=== PATIENT | female | born 1995 | race African-American/Black ===

== ENCOUNTER 2019-04-30 09:09 | Emergency (ER) | payer OTHER ==
[2019-04-30 09:15] VITALS: BP 124/80
[2019-04-30] MEDS ORDERED: ACETAMINOPHEN SOLN 325 MG/10.15 ML UDCUP PO ONE (09:45)
[2019-04-30] MEDS ORDERED: CYCLOBENZAPRINE HCL 10 MG TABLET PO ONE (09:45)
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
== END 2019-04-30 09:59 | disposition home or self-care (01) ==
LOC: ER 09:09
DX: S29.012A Strain of muscle and tendon of back wall of thorax, initial encounter (principal); M54.2 Cervicalgia; M25.511 Pain in right shoulder; V87.7XXA Person injured in collision between other specified motor vehicles (traffic), initial encounter; F17.200 Nicotine dependence, unspecified, uncomplicated
CPT/HCPCS: 99283; J3490

== ENCOUNTER 2019-12-13 20:12 | Emergency (ER) | payer OTHER ==
[2019-12-13] MEDS ORDERED: ONDANSETRON HCL INJ/PF 4 MG/2 ML SDV IV ONE ×2 (20:54→22:26)
[2019-12-13] MEDS ORDERED: NORMAL SALINE 1000 ML 1,000 ML IV ONE ×2 (20:54→22:26)
[2019-12-13 21:16] LABS: ABSOLUTE MONOCYTES (AUTO) 0.9 10^3/uL (0.1-1.4); ABSOLUTE NEUT (AUTO) 7.7 10^3/uL (1.7-8.2); BASOPHILS % (AUTO) 0.3 % (0-2); HEMATOCRIT 42.5 % (36.0-47.0); HEMOGLOBIN 14.4 g/dL (12.0-15.5); LYMPHOCYTES % (AUTO) 10.2 % (13-45); MEAN CORPUSCULAR HEMOGLOBIN 25.3 pg (27.0-33.4); MEAN CORPUSCULAR VOLUME 75 fl (80-97); MONOCYTES % (AUTO) 9.5 % (3-13); PLATELET COUNT 240 10^3/uL (150-450); TOTAL CELLS COUNTED % (AUTO) 100 %; WHITE BLOOD COUNT 9.6 10^3/uL (4.0-10.5)
[2019-12-13 21:30] LABS: A TYPE INFLUENZA AG NEGATIVE (NEGATIVE); B INFLUENZA AG NEGATIVE (NEGATIVE)
[2019-12-13 21:34] LABS: ALBUMIN 4.3 g/dL (3.5-5.0); ALKALINE PHOSPHATASE 63 U/L (38-126); ANION GAP 13 (5-19); ASPARTATE AMINO TRANSFERASE 33 U/L (14-36); BILIRUBIN,TOTAL 0.4 mg/dL (0.2-1.3); BLOOD UREA NITROGEN 9 mg/dL (7-20); CARBON DIOXIDE 21 mmol/L (22-30); CHLORIDE 103 mmol/L (98-107); GLUCOSE 94 mg/dL (75-110); POTASSIUM 3.7 mmol/L (3.6-5.0); TOTAL PROTEIN 7.8 g/dL (6.3-8.2)
[2019-12-13 22:45] LABS: APPEARANCE,URINE SLIGHTLY-CLOUDY; BILIRUBIN,URINE NEGATIVE (NEGATIVE); COLOR,URINE YELLOW; GLUCOSE, URINE NEGATIVE (NEGATIVE); KETONES,URINE 80 mg/dL (NEGATIVE); LEUKOCYTE ESTERASE,URINE NEGATIVE (NEGATIVE); NITRITE,URINE NEGATIVE (NEGATIVE); PROTEIN,URINE >=500 mg/dL (NEGATIVE); URINE SPECIFIC GRAVITY 1.029; UROBILINOGEN,URINE NEGATIVE mg/dL (<2.0)
--- NOTE | 2019-12-13 23:02 | RADIOLOGY REPORT (SQ) ---
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 Findings: The cardiomediastinal silhouette is normal in size.No pneumothorax is seen. No acute airspace opacities are seen. No discrete pleural effusion is apparent. Impression: No acute airspace opacities are seen.
--- NOTE | 2019-12-13 23:23 | ER Document Report ---
ED General - General Chief Complaint: Cold Symptoms Stated Complaint: COLD SYMPTOMS,NAUSEA,VOMITING Time Seen by Provider: 12/13/19 20:44 Mode of Arrival: Ambulatory Information source: Patient Notes: 24-year-old female with history of asthma presents emergency department with complaints of headache dizziness sore throat cough for the past 3 to 4 days. Reports nausea vomiting yesterday. Also complains of loose stools. Denies fever. Reports other family members are ill. Did not receive her flu vaccine this year. Patient actively vomiting. TRAVEL OUTSIDE OF THE [place] IN LAST 30 DAYS: No - HPI Onset: Other - 3-4 days Onset/Duration: Persistent Associated symptoms: Diarrhea, Nausea, Vomiting Exacerbated by: Denies Relieved by: Denies Similar symptoms previously: No Recently seen / treated by doctor: No - Related Data Allergies/Adverse Reactions: No Known Allergies Allergy (Unverified 04/30/19 09:45) Past Medical History - General Information source: Patient - Social History Smoking Status: Never Smoker Chew tobacco use (# tins/day): No Frequency of alcohol use: None Drug Abuse: None Lives with: Family Family History: Reviewed & Not Pertinent Patient has suicidal ideation: No Patient has homicidal ideation: No Pulmonary Medical History: Reports: Hx Asthma Renal/ Medical History: Denies: Hx Peritoneal Dialysis Surgical Hx: Negative - Immunizations Immunizations up to date: Yes History of Influenza Vaccine for 07/2019 - 12/2019 Season: No Review of Systems - Review of Systems Notes: Review HPI for review of systems., All other systems negative Physical Exam - Vital signs Vitals: Temp Pulse Resp BP Pulse Ox 99.6 F 99 18 132/77 H 96 12/13/19 20:17 12/13/19 20:17 12/13/19 20:17 12/13/19 20:17 12/13/19 20:17 - Notes Notes: PHYSICAL EXAMINATION: GENERAL: Well-appearing and in no acute distress HEAD: Atraumatic, normocephalic. EYES: Pupils equal round and reactive to light, extraocular movements intact, sclera anicteric, conjunctiva are normal. ENT: nares patent, oropharynx clear without exudates. Moist mucous membranes. NECK: Normal range of motion, supple without lymphadenopathy LUNGS: CTAB and equal. + rhonchi, No wheezes or rales HEART: Regular rate and rhythm without murmurs ABDOMEN: Soft, no tenderness. No guarding, no rebound EXTREMITIES: Normal range of motion, no pitting edema. No cyanosis. NEUROLOGICAL: Cranial nerves grossly intact. Normal sensory/motor exams. PSYCH: Normal mood, normal affect. SKIN: Warm, Dry, normal turgor, no rashes or lesions noted Course - Re-evaluation Re-evalutation: 12/13/19 23:18 24-year-old female [facility] emergency department with complaints of nausea vomiti ng diarrhea with complaints of headache dizziness sore throat and cough for the past 3 to 4 days. She reports she is tried some [id number] meds without relief. She reports other family members are ill. Labs unremarkable. Proteinuria noted which is probably related to her vomiting and diarrhea. Patient was hydrated with a liter of fluid given some Zofran. She reports she feels much better. No further vomiting no diarrhea. She was instructed on the importance of monitoring her symptoms take Zofran as indicated return to the emergency department with stool sample. She was also instructed on proteinuria the importance of following up with a primary care for provider for recheck next week. She was instructed if she did not have a primary care provider she should return here for symptoms or concerns. She verbalized understanding to all instructions. Laboratory 12/13/19 12/13/19 12/13/19 21:04 21:04 21:04 WBC 9.6 RBC 5.70 H Hgb 14.4 Hct 42.5 MCV 75 L MCH 25.3 L MCHC 34.0 RDW 16.0 H Plt Count 240 Lymph % (Auto) 10.2 L [place] % (Auto) 9.5 Eos % (Auto) 0.0 Baso % (Auto) 0.3 Absolute Neuts (auto) 7.7 Absolute Lymphs (auto) 1.0 Absolute Monos (auto) 0.9 Absolute Eos (auto) 0.0 Absolute Basos (auto) 0.0 Seg Neutrophils % 80.0 H Sodium 137.1 Potassium 3.7 Chloride 103 Carbon Dioxide 21 L Anion Gap 13 BUN 9 Creatinine 0.70 Est GFR ( Amer) > 60 Est GFR (MDRD) Non-Af > 60 Glucose 94 Calcium 9.0 Total Bilirubin 0.4 Direct Bilirubin 0.0 Neonat Total Bilirubin Not Reportable Neonat Direct Bilirubin Not Reportable Neonat Indirect Bili Not Reportable AST 33 ALT 19 Alkaline Phosphatase 63 Total Protein 7.8 Albumin 4.3 Urine Color Urine Appearance Urine pH Ur Specific [place] Urine Protein Urine Glucose (UA) Urine Ketones Urine Blood Urine Nitrite Urine Bilirubin Urine Urobilinogen Ur Leukocyte Esterase Urine WBC (Auto) Urine RBC (Auto) U Hyaline Cast (Auto) Urine Bacteria (Auto) Squamous Epi Cells Auto Urine Mucus (Auto) Urine Ascorbic Acid Influenza A (Rapid) NEGATIVE Influenza B (Rapid) NEGATIVE Group A Strep Rapid 12/13/19 12/13/19 21:55 22:50 WBC RBC Hgb Hct MCV MCH MCHC RDW Plt Count Lymph % (Auto) [place] % (Auto) Eos % (Auto) Baso % (Auto) Absolute Neuts (auto) Absolute Lymphs (auto) Absolute Monos (auto) Absolute Eos (auto) Absolute Basos (auto) Seg Neutrophils % Sodium Potassium Chloride Carbon Dioxide Anion Gap BUN Creatinine Est GFR ( Amer) Est GFR (MDRD) Non-Af Glucose Calcium Total Bilirubin Direct Bilirubin Neonat Total Bilirubin Neonat Direct Bilirubin Neonat Indirect Bili AST ALT Alkaline Phosphatase Total Protein Albumin Urine Color YELLOW Urine Appearance SLIGHTLY-CLOUDY Urine pH 5.0 Ur Specific [place] 1.029 Urine Protein >=500 H Urine Glucose (UA) NEGATIVE Urine Ketones 80 H Urine Blood MODERATE H Urine Nitrite NEGATIVE Urine Bilirubin NEGATIVE Urine Urobilinogen NEGATIVE Ur Leukocyte Esterase NEGATIVE Urine WBC (Auto) 5 Urine RBC (Auto) 4 U Hyaline Cast (Auto) 1 Urine Bacteria (Auto) 2+ Squamous Epi Cells Auto 5 Urine Mucus (Auto) FEW Urine Ascorbic Acid NEGATIVE Influenza A (Rapid) Influenza B (Rapid) Group A Strep Rapid NEGATIVE 12/14/19 04:48 - Vital Signs Vital signs: Temp Pulse Resp BP Pulse Ox 98.8 F 78 20 128/68 H 100 12/14/19 02:31 12/14/19 02:31 12/14/19 02:31 12/14/19 02:31 12/14/19 02:31 - Laboratory Result Diagrams: 12/13/19 21:04 12/13/19 21:04 Laboratory results interpreted by me: 12/13/19 12/13/19 12/13/19 21:04 21:04 21:55 RBC 5.70 H MCV 75 L MCH 25.3 L RDW 16.0 H Lymph % (Auto) 10.2 L Seg Neutrophils % 80.0 H Carbon Dioxide 21 L Urine Protein >=500 H Urine Ketones 80 H Urine Blood MODERATE H - Diagnostic Test Radiology reviewed: Image reviewed, Reports reviewed Discharge - Discharge Clinical Impression: Cough, Nausea vomiting and diarrhea Proteinuria Qualifiers: Proteinuria type: unspecified Qualified Code(s): R80.9 - Proteinuria, unspecified Condition: Stable Disposition: HOME, SELF-CARE Instructions: Antinausea Medication ([facility]), Diarrhea, Nonspecific ([facility]), Intravenous (IV) Fluids ([facility]), OTC Antidiarrhea Medication ([facility]), Viral Syndrome ([facility]), Vomiting ([facility]) Additional Instructions: *You have been evaluated for cough, nausea/vomiting/diarrhea, proteinuria *Take medication as prescribed *Return to the hospital with outpatient stool sample *Take over the counter anti-diarrheal as indicated *Ensure adequate fluid intake as discussed to prevent dehydration *Return to outpatient lab with stool sample *Follow up with a primary care provider within one week for repeat urine *Return to ED for worsening condition, changes, needs Monitor your blood pressure. Your blood pressure was elevated today. This may be because you were anxious, in pain or because you need medication. It is important to follow up with your primary care provider for full evaluation. Forms: Elevated Blood Pressure, Follow-Up Laboratory Testing, Return to Work
[2019-12-14] MEDS ORDERED: BISMUTH SUBSALICYLATE 262 MG TAB.CHEW PO ONE (01:39)
[2019-12-14] MEDS ORDERED: ONDANSETRON ODT 4 MG TAB (6 TAB/ER DISP) PO PRN (01:39)
[2019-12-14] MEDS ORDERED: BISMUTH SUBSALICYLATE 262 MG TAB.CHEW ONE (02:08)
[2019-12-14 02:31] VITALS: BP 128/68
== END 2019-12-14 02:30 | disposition home or self-care (01) ==
LOC: ER 20:12
DX: R11.2 Nausea with vomiting, unspecified (principal); R19.7 Diarrhea, unspecified; R05 Cough; R80.9 Proteinuria, unspecified; R51 Headache; R42 Dizziness and giddiness; J02.9 Acute pharyngitis, unspecified
CPT/HCPCS: 99283; 96361; 96374; 36415; 87070; 87880; 85025; 81025; 80053; 81001; 87804; 71046; J2405; J7030